=== PATIENT | female | born 1990 | race Caucasian/White ===

== ENCOUNTER 2019-12-06 09:17 | Emergency (ER) | payer OTHER ==
[2019-12-07 12:10] LABS: SARS-CoV-2 MS2 Positive; SARS-CoV-2 N Gene Negative; SARS-CoV-2 S Gene Negative; SARS-CoV-2 orf1ab Negative
== END 2019-12-06 09:43 | disposition home or self-care (01) ==
LOC: ERS 09:17
DX: O99.89 Other specified diseases and conditions complicating pregnancy, childbirth and the puerperium (principal); R11.0 Nausea; O99.511 Diseases of the respiratory system complicating pregnancy, first trimester; J34.89 Other specified disorders of nose and nasal sinuses; Z20.828 Contact with and (suspected) exposure to other viral communicable diseases; Z3A.01 Less than 8 weeks gestation of pregnancy
CPT/HCPCS: 87635; 99283; U0003

== ENCOUNTER 2020-07-26 07:45 | Outpatient (CLI) | payer OTHER ==
[2020-07-26 16:56] LABS: SARS-CoV-2 PCR by NAA Not Detected (NotDetected)
== END 2020-07-26 07:46 | disposition home or self-care (01) ==
LOC: LABBT 07:45
PROVIDERS: ATTEND Obstetrics & Gynecology
DX: Z20.822 Contact with and (suspected) exposure to COVID-19 (principal)
CPT/HCPCS: 87635; U0003; U0005